=== PATIENT | male | born 1980 | race Hispanic/Latino ===

== ENCOUNTER 2018-04-06 19:56 | Emergency (ER) | payer OTHER | END 2018-04-06 20:29 | disposition home or self-care (01) | LOC: EDH 19:56 | DX: K64.4 Residual hemorrhoidal skin tags (principal); L08.9 Local infection of the skin and subcutaneous tissue, unspecified; Z72.0 Tobacco use ==

== ENCOUNTER 2023-09-29 21:01 | Emergency (ER) | payer OTHER ==
[~2023-09-29] VITALS: Ht 172.7 cm; Wt 90.7 kg
[2023-09-29 21:22] LABS: BASOPHILS # (AUTO) 0.07 K/uL (0.00-0.20); BASOPHILS % (AUTO) 0.7 % (0.0-5.0); EOSINOPHILS # (AUTO) 0.07 K/uL (0.00-0.70); EOSINOPHILS % (AUTO) 0.7 % (0.0-8.0); HEMATOCRIT 43.9 % (42-54); IMMATURE GRANULOCYTE ABSOLUTE 0.03 K/uL (0-1); LYMPHOCYTES # (AUTO) 1.8 K/uL (1.0-4.8); MEAN CORPUSCULAR HEMOGLOBIN 31.7 pg (27.0-33.0); MEAN CORPUSCULAR HGB CONC 36.4 g/dL (32.0-36.0); MEAN CORPUSCULAR VOLUME 86.9 fL (79-99); MONOCYTES # (AUTO) 0.7 K/uL (0.1-1.0); NEUTROPHILS # (AUTO) 7.7 K/uL (1.8-7.7); NEUTROPHILS % (AUTO) 74.3 % (40.0-77.0); PLATELET COUNT (AUTO) 298 K/uL (130-400); RED BLOOD CELL COUNT(AUTO) 5.05 MIL/uL (4.50-6.20); RED CELL DISTRIBUTION WIDTH 12.1 % (11.0-15.5); WHITE BLOOD COUNT (AUTO) 10.4 K/uL (4.8-10.8)
[2023-09-29 21:32] LABS: CREATININE 0.9 mg/dL (0.5-1.3); POTASSIUM 4.3 mmol/L (3.5-5.1)
[2023-09-29 21:41] LABS: ALBUMIN 4.2 g/dL (3.5-5.0); BILIRUBIN,TOTAL 1.4 mg/dL (0.2-1.0); TOTAL PROTEIN, SERUM 8.4 g/dL (6.0-8.3)
[2023-09-29] MEDS: 0.9%NACL 1000ML 1,000 ML IV STA (22:20)
[2023-09-29] MEDS: MORPHINE 2 MG SYG IVP STA (22:21)
[2023-09-29] MEDS: ONDANSETRON 4MG INJ IVP STA (22:21)
[2023-09-30 00:49] LABS: APPEARANCE,URINE CLEAR (CLEAR); BILIRUBIN,URINE NEGATIVE (NEGATIVE); COLOR,URINE LIGHT-YELLOW (YELLOW); GLUCOSE, URINE (UA) NEGATIVE (NEGATIVE); KETONES,URINE 150 mg/dL (NEGATIVE); LEUKOCYTE ESTERASE ,URINE NEGATIVE Leu/uL (NEGATIVE); NITRATE,URINE NEGATIVE (NEGATIVE); PROTEIN,URINE 10 mg/dL (NEGATIVE); UROBILINOGEN,URINE 0.2 mg/dL (0.2-1.0)
[2023-09-30 01:00] LABS: ADD UA MICROSCOPIC YES
[2023-09-30] MEDS: MAG/ALUM/SIMETH 30 ML UDCUP PO ONE (01:00)
[2023-09-30] MEDS: LIDOCAINE HCL 2% VISCOUS 15 ML UDCUP PO ONE (01:00)
[2023-09-30] MEDS: DICYCLOMINE HCL 10 MG/5 ML ML PO ONE (01:00)
[2023-09-30] MEDS: FAMOTIDINE 20MG VIAL IV STA (01:01)
[2023-09-30] MEDS: KETOROLAC 15MG/ML VIAL (15MG/ML) IV STA (01:01)
[2023-09-30 01:02] LABS: AMPHET/METH SCREEN,URINE NEGATIVE (NEGATIVE); BARBITURATE SCREEN, URINE NEGATIVE (NEGATIVE); BENZODIAZEPINES SCREEN,URINE NEGATIVE (NEGATIVE); CANNABINOID SCREEN,URINE POSITIVE (NEGATIVE); COCAINE SCREEN,URINE POSITIVE (NEGATIVE); OPIATE SCREEN,URINE NEGATIVE (NEGATIVE); PHENCYCLIDINE SCREEN,URINE NEGATIVE (NEGATIVE)
[2023-09-30 01:04] LABS: BACTERIA,URINE RARE /HPF (None Seen); MUCUS,URINE RARE LPF (None Seen); RBC,URINE 0-1 /HPF (0-1); WBC,URINE 0-1 /HPF (0-1)
[2023-09-30] MEDS ORDERED: METH100054 PO (01:31)
[2023-09-30] MEDS ORDERED: KETO10TA2 PO (01:31)
[2023-09-30] MEDS: LIDOCAINE 4% ADH..PATCH TP STA (01:36)
[2023-09-30 01:43] VITALS: BP 144/72; PULSE 74; RESP 18; O2SAT 96
== END 2023-09-30 01:44 | disposition home or self-care (01) ==
LOC: EDH 21:01
DX: M79.18 Myalgia, other site (principal); R10.9 Unspecified abdominal pain; R07.81 Pleurodynia; Z79.899 Other long term (current) drug therapy; X50.1XXA Overexertion from prolonged static or awkward postures, initial encounter; Y93.89 Activity, other specified; Y92.89 Other specified places as the place of occurrence of the external cause; Y99.8 Other external cause status
CPT/HCPCS: 99285; 96374; 74150; 71045; 96375 ×2; 84484; 80053; 80305; 83690; 85025; 36415; 93005; 81001; J2270; J7030; J2405; J3490; J1885

== ENCOUNTER → 2023-11-27 | Emergency (ER) | payer SELFPAY ==
[~2023-11-27] VITALS: Ht 170.2 cm; Wt 89.4 kg
[~2023-11-27] MED LIST: 0.9%NACL 1000ML 1,000 ML IV ONE; KETO10TA2 PO; METH100054 PO
[2023-11-27 15:56] VITALS: BP 165/113; PULSE 81; RESP 16; TEMP 97.7
== END ==
LOC: EDH 15:55
DX: R19.7 Diarrhea, unspecified (principal); R10.9 Unspecified abdominal pain; Z53.21 Procedure and treatment not carried out due to patient leaving prior to being seen by health care provider